=== PATIENT | male | born 1955 | race Caucasian/White ===

== ENCOUNTER → 2017-11-18 | Outpatient (CLI) | payer OTHER ==
[~2017-11-18] MED LIST: ASPIR 8181 MG PO; FISH OIL 1,001000 M2 PO; HYDROCHLOROTHIA25 M2 PO; MONOPRIL20 MG PO; NORVASC 5 MG TAB5 MG; NORVASC5 MG PO; PERCOCET 5-3251 EACH PO; TOPROL XL100 MG PO; XARELTO10 MG PO
[2017-11-18 11:50] LABS: HEMATOCRIT 58.9 % (42.0-52.0); HEMOGLOBIN 18.8 gm/dL (14.0-18.0); MCH 24.7 pg (26.0-34.0); MCHC 31.9 g/dL (28.0-37.0); MCV 77.5 fL (80.0-100.0); MPV 8.3 fl. (7.2-11.1); NUCLEATED RBCS 0 /100WBC; PLATELET COUNT* 405 thou/uL (150-400); RBC 7.61 mil/uL (4.50-6.00); WBC 19.5 thou/uL (4.0-11.0)
[2017-11-18 12:02] LABS: ALBUMIN 3.9 g/dL (3.4-5.0); ALKALINE PHOSPHATASE 101 U/L (46-116); ANION GAP 4 mmol/L (7-16); BUN 24 mg/dL (7-18); CALCIUM 9.2 mg/dL (8.5-10.1); CHLORIDE 101 mmol/L (98-107); CHOLESTEROL 148 mg/dL (<200); CO2 32 mmol/L (21-32); CREATININE 1.3 mg/dL (0.6-1.3); GLUCOSE 109 mg/dL (70-99); HDL CHOLESTEROL 33 mg/dL (>40); LDL CHOLESTEROL 92 mg/dL (<100); POTASSIUM 4.5 mmol/L (3.5-5.1); SERUM ASSESSMENT Clear; SGOT 36 U/L (15-37); SGPT 57 U/L (30-65); SODIUM 137 mmol/L (136-145); TC:HDL 4.5 Ratio (Not establshd); TOTAL BILIRUBIN 1.1 mg/dL (<0.1-1.0); TOTAL PROTEIN 8.6 g/dL (6.4-8.2); TRIGLYCERIDE 115 mg/dL (<150); VLDL 23 mg/dL (<40)
[2017-11-18 12:49] LABS: ABSOLUTE BASOPHILS 0.2 thou/uL (0.0-0.2); ABSOLUTE EOSINOPHILS 0.2 thou/uL (0.0-0.7); ABSOLUTE MONOCYTES 1.4 thou/uL (0.0-1.2); ABSOLUTE NEUTROPHILS 15.8 thou/uL (1.6-8.1); ANISOCYTOSIS 1+; HYPOCHROMASIA 1+; PLATELET ESTIMATE ADEQUATE
== END ==
LOC: M.LAB 11:36
PROVIDERS: Internal Medicine
DX: I10 Essential (primary) hypertension (principal); D45 Polycythemia vera

== ENCOUNTER 2018-06-19 17:55 | Inpatient (IN) | payer OTHER ==
[~2018-06-19] VITALS: Ht 180.3 cm; Wt 123.8 kg
[~2018-06-19 17:55] MED LIST changes: -ASPIR 8181 MG PO; -FISH OIL 1,001000 M2 PO; -NORVASC5 MG PO; -XARELTO10 MG PO
[2018-06-19] MEDS ORDERED: XARELTO10 MG PO (18:08)
[2018-06-19 18:33] LABS: HEMOGLOBIN 19.9 gm/dL (14.0-18.0); MCH 25.6 pg (26.0-34.0); MCHC 32.8 g/dL (28.0-37.0); MPV 8.7 fl. (7.2-11.1); NUCLEATED RBCS 0 /100WBC; PLATELET COUNT* 383 thou/uL (150-400); RBC 7.79 mil/uL (4.50-6.00); RDW-CV 18.8 % (10.5-14.5); WBC 17.2 thou/uL (4.0-11.0)
[2018-06-19 18:36] LABS: HEMATOCRIT 60.8 % (42.0-52.0)
[2018-06-19 18:56] LABS: ANION GAP 9 mmol/L (7-16); BUN 24 mg/dL (7-18); CALCIUM 9.4 mg/dL (8.5-10.1); CHLORIDE 99 mmol/L (98-107); CO2 26 mmol/L (21-32); CREATININE 1.2 mg/dL (0.6-1.3); GLUCOSE 125 mg/dL (70-99); POTASSIUM 3.8 mmol/L (3.5-5.1); SODIUM 134 mmol/L (136-145)
[2018-06-19 18:58] LABS: ABSOLUTE EOSINOPHILS 0.2 thou/uL (0.0-0.7); ABSOLUTE LYMPHOCYTES 1.5 thou/uL (0.8-5.3); ABSOLUTE MONOCYTES 0.7 thou/uL (0.0-1.2); ABSOLUTE NEUTROPHILS 14.8 thou/uL (1.6-8.1); ANISOCYTOSIS 1+; INR 1.7; MACROCYTES 1+; PLATELET ESTIMATE ADEQUATE
[2018-06-19 19:07] LABS: ALBUMIN 3.6 g/dL (3.4-5.0); ALKALINE PHOSPHATASE 105 U/L (46-116); LIPASE 154 U/L (73-393); NT-PRO BRAIN NAT PEPTIDE 1351 pg/mL (<300); SGOT 36 U/L (15-37); SGPT 55 U/L (30-65); TOTAL BILIRUBIN 0.9 mg/dL (<0.1-1.0); TOTAL PROTEIN 8.8 g/dL (6.4-8.2); TROPONIN-I LEVEL <0.06 ng/mL (<0.06)
[2018-06-19 21:54] VITALS: BP 144/90
[2018-06-19 22:29] VITALS: BP 137/84
[2018-06-19] MEDS ORDERED: NORVASC5 MG PO (22:57)
[2018-06-19] MEDS ORDERED: FISH OIL 1,001000 M2 PO (22:58)
[2018-06-20] VITALS: BP 123/61
[2018-06-20 02:41] LABS: HEMATOCRIT 59.3 % (42.0-52.0); HEMOGLOBIN 18.9 gm/dL (14.0-18.0); MCH 25.1 pg (26.0-34.0); MCHC 31.9 g/dL (28.0-37.0); MCV 78.5 fL (80.0-100.0); MPV 8.8 fl. (7.2-11.1); RBC 7.55 mil/uL (4.50-6.00); RDW-CV 18.9 % (10.5-14.5); WBC 17.4 thou/uL (4.0-11.0)
[2018-06-20 03:48] VITALS: BP 125/72
--- NOTE | 2018-06-20 07:52 | NUR ---
PT ADMITTED TO ROOM 203 DURING THIS SHIFT; VSS, A+OX4, 2L O2, UP AD ARSLAN. HE IS ABLE TO COMMUNICATE HIS NEEDS TO STAFF EFFECTIVELY. HE HAS DENIED THE NEED FOR PAIN MEDICATION UP TO THIS TIME. HE HAS BEEN NPO, EXCEPT FOR SIPS WITH MEDS, FOR A CARDIOLOGY CONSULT TODAY. PT DENIES ANY RECURRENT CHEST PAIN SINCE BEING ADMITTED TO THE FLOOR.
[2018-06-20 08:15] VITALS: BP 128/75
[2018-06-20] MEDS ORDERED: ASPIR 8181 MG PO (08:18)
[2018-06-20 08:42] LABS: CHOLESTEROL 154 mg/dL (<200); HDL CHOLESTEROL 28 mg/dL (>40); LDL CHOLESTEROL 104 mg/dL (<100); TC:HDL 5.5 Ratio (Not establshd); TRIGLYCERIDE 110 mg/dL (<150); VLDL 22 mg/dL (<40)
[2018-06-20 08:44] LABS: SERUM ASSESSMENT Clear
[2018-06-20 11:07] VITALS: BP 139/90
[2018-06-20 15:40] VITALS: BP 145/80
--- NOTE | 2018-06-20 18:43 | NUR ---
PT ASSESSMENT CHARTED. VSS AT THIS TIME. NPO AT MIDNIGHT FOR A CARDIAC STRESS TEST IN THE MORNING. NO OTHER COMPLAINTS DURING THE DAY. 1 UNIT OF BLOOD REMOVED AT THE BEDSIDE WITHOUT DIFFICULTY. NO OTHER COMPLAINTS AT THIS TIME. WILL CONTINUE TO MONITOR.
[2018-06-20 20:55] VITALS: BP 119/69
[2018-06-21 00:08] VITALS: BP 123/70
[2018-06-21 04:00] VITALS: BP 112/58
[2018-06-21 04:44] LABS: CHOLESTEROL 140 mg/dL (<200); HDL CHOLESTEROL 26 mg/dL (>40); LDL CHOLESTEROL 91 mg/dL (<100); TC:HDL 5.4 Ratio (Not establshd); TRIGLYCERIDE 116 mg/dL (<150); VLDL 23 mg/dL (<40)
[2018-06-21 04:53] LABS: SERUM ASSESSMENT CLEAR
[2018-06-21 08:00] VITALS: BP 137/85
--- NOTE | 2018-06-21 08:53 | NUR ---
PT IS ABLE TO COMMUNICATE HIS NEEDS TO STAFF EFFECTIVELY. HE HAS DENIED THE NEED FOR PAIN MEDICATION UP TO THIS TIME. HE HAS BEEN NPO FOR CARDIOLOGY STRESS TEST LATER TODAY. POSSIBLE DISCHARGE LATER TODAY.
[2018-06-21 08:58] LABS: ABSOLUTE BASOPHILS 0.3 thou/uL (0.0-0.2); ABSOLUTE EOSINOPHILS 0.9 thou/uL (0.0-0.7); ABSOLUTE LYMPHOCYTES 2.3 thou/uL (0.8-5.3); ABSOLUTE MONOCYTES 0.9 thou/uL (0.0-1.2); ABSOLUTE NEUTROPHILS 14.5 thou/uL (1.6-8.1); BASOPHILS 1.4 %; EOSINOPHILS 4.6 %; HEMATOCRIT 58.5 % (42.0-52.0); HEMOGLOBIN 18.5 gm/dL (14.0-18.0); LYMPHOCYTES 12.3 %; MCH 25.4 pg (26.0-34.0); MCHC 31.7 g/dL (28.0-37.0); MCV 80.1 fL (80.0-100.0); MONOCYTES 4.6 %; MPV 8.9 fl. (7.2-11.1); NUCLEATED RBCS 0 /100WBC; PLATELET COUNT* 369 thou/uL (150-400); POLYS 77.1 %; RBC 7.31 mil/uL (4.50-6.00); RDW-CV 19.4 % (10.5-14.5); WBC 18.7 thou/uL (4.0-11.0)
--- NOTE | 2018-06-21 11:30 | EKG ---
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 06/21/18 1130 1759 1759 Zaid Del Cid MD, FACC /EPI
[2018-06-21 11:47] VITALS: BP 121/75
--- NOTE | 2018-06-21 15:26 | NUR ---
Pt is A&O. Resides at home with . Independent and works. Consult received regarding need for outpt Hematology at ri, CM provided Pt with list and informed that he will need to contact his PCP for a referral. CM also encouraged Pt to contact HR with any questions. Plan ri this evening, post stress test.
--- NOTE | 2018-06-21 16:36 | NUR ---
THERAPEUTIC PHLEBOTOMY STARTED. PT TOLERATING WELL. DRINKING WELL. AT BS
--- NOTE | 2018-06-21 17:09 | NUR ---
STRESS TEST NEGATIVE PER DR COLMENARES. DR ARMANDO NOTIFIED
--- NOTE | 2018-06-21 17:44 | CARDNUC ---
[place] [address] CARDIAC NUCLEAR IMAGING REPORT Name: ALLEN MATHEW Room: [address] IN [facility]#: [id number] Admission: 06/21/18 Attend Phys: Nato Castorena, Discharge: Date of : 53 Date of Service: 06/21/18 1744 Report #: [id number] THIS REPORT FOR: //name// APPROVED REPORT Study performed: 06/20/2018 11:21:00 Indication: Chest pain Patient Location: In-Patient Room #: [facility] Stress Tech: Katarzyna Kan Stress Nurse: Calista Suarez RN Ht: 5 ft 10 in Wt: 273 lbs BSA: 2.38 m2 BMI: 39.16 Medical History Medical History: Angina, HTN, Afib Medications: Amlodipine, Hydrochlorothiazide, Lisinopril, Metoprolol, NTG, Xarelto, ASA 81 MG Allergies: No known drug allergies Cardiac Risk Factors: Age, HTN Previous Cardiac Procedures: None Pretest Chest Pain Characteristics: No chest pain Exercise History: Indeterminate Physical Disabilities: Legs, generalized weakness Pharmacologic Stress Pharmacologic stress test was performed by injecting Regadenoson 0.4 mg IV push over 10-15 seconds immediately followed by the intravenous injection of 34.3 mCi of Tc-99m Sestamibi. Time of stress injection: 14:50 Date: 06/21/2018 Administration Route: IV Administration Site: 1420 Heart Rate at time of stress injection: 122 bpm. Gated Stress SPECT was performed 40 minutes after stress injection. The images were gated to evaluate regional wall motion and calculate left ventricular ejection fraction. Prone imaging was performed. Stress Test Details Stress Test: Pharmacologic stress testing performed using 0.4 mg of regadenoson per 5 mL given IV over 10 seconds. Reason for pharmacologic stress test: physical limitation, [place] [address] CARDIAC NUCLEAR IMAGING REPORT Name: ALLEN MATHEW Room: [address] IN ..#: [id number] Admission: 06/21/18 Attend Phys: Nato Castorena, Discharge: Date of : 53 Date of Service: 06/21/18 1744 Report #: [id number] generalized weakness. HR Max Heart Rate (APMHR): 157 bpm Resting HR: 90 bpm Target HR (85% APMHR): 133 bpm Max HR Achieved: 122 bpm % of APMHR: 77 Recovery HR: 104 bpm BP Resting BP: 142/83 mmHg Recovery BP: 159/76 mmHg ECG Resting ECG: Atrial Fibrillation Stress ECG: Atrial Fibrillation ST Change: None Arrhythmia: None Recovery ECG: Atrial Fibrillation Recovery ST Change: None Recovery Arrhythmia: None Clinical Reason for Termination: Completed protocol Stress Symptoms: Head pressure Exercise duration: 0 min 0 sec Exercise capacity: 1.00 METs The patient tolerated Lexiscan infusion without significant symptoms. Nurse Comments 62 year old male presented for stress test with active Afib, unable to walk on treadmill. Patient tolerated sitting lexiscan well with only head pressure reported which resolved with caffeine. Recovery unremarkable. Patient was escorted with staff via wheelchair to nuclear medicine for images. Patient was stable with no complaints at that time. Stress ECG Conclusion The baseline 12-lead EKG shows atrial fibrillation with a controlled ventricular response. There were no significant ST or T-wave abnormalities. EKGs obtained during and post Lexiscan infusion show atrial for ablation with no significant ST or T wave changes when baseline. Study Quality Study: [place] [address] CARDIAC NUCLEAR IMAGING REPORT Name: ALLEN MATHEW Room: [address]#: [id number] Admission: 06/21/18 Attend Phys: Nato Castorena, Discharge: Date of : 53 Date of Service: 06/21/18 1744 Report #: [id number] Artifact: No artifact Study Data Post stress, the left ventricular ejection was 82%.. Perfusion Post Lexiscan stress images show uniform uptake of the radioisotope throughout the myocardium without defect. Wall Motion Normal left ventricular wall motion. Nuclear Conclusion ECG Findings: negative for ischemia Clinical Findings: negative for ischemia Nuclear Findings: negative for ischemia Exercise Capacity: not assessed Left Ventricular Function: normal Risk Study: low Myocardial perfusion images show no defect to suggest infarct or ischemia. Left ventricular systolic function is normal on gated studies. This is a low risk study. <Conclusion> The baseline 12-lead EKG shows atrial fibrillation with a controlled ventricular response. There were no significant ST or T-wave abnormalities. EKGs obtained during and post Lexiscan infusion show atrial for ablation with no significant ST or T wave changes when baseline. <ELECTRONICALLY SIGNED> By: Derick Herrera MD, FACC 06/21/18 1744 43 43 Derick Herrera MD, FACC /INF
[2018-06-21 17:45] VITALS: BP 121/75
--- NOTE | 2018-06-22 15:03 | CON ---
[address] [address] CONSULTATION Name: ALLEN MATHEW Room: [address] IN M.R.#: [id number] Admission: 06/21/18 Attend Phys: Nato Castorena MD Discharge: 06/21/18 Date of : 53 Report #: [id number] THIS REPORT FOR: //name// CC: Ace Castorena HISTORY OF PRESENT ILLNESS: I was asked by Dr. Castorena to see this 62-year-old white male in Cardiology consultation for evaluation and treatment of chest pain. This man does have a history of permanent atrial fibrillation in the past. He also has polycythemia vera and when he came to the ER yesterday, his hemoglobin was 19.9. He was at a grandson's football game yesterday and developed chest discomfort over his entire anterior chest. This occurred at rest. He was sitting in the stance. He described the pain as a dull pressure. It was a 5-6 on a scale of 10. There were no associated symptoms. There was no radiation of the discomfort. The pain lasted about 2 hours and finally began to go away after he got nitroglycerin and aspirin in the Emergency Room. He got 1 nitroglycerin. The discomfort was gone in 20 minutes. He has not had any further discomfort. LABORATORY DATA: His EKG shows atrial fibrillation with a controlled ventricular response with the heart rate was 89. There is late transition in the precordial R-wave. Otherwise, it is a fairly unremarkable EKG. He has negative troponins x 4. His NT-proBNP was 1351. His chest x-ray showed mild cardiomegaly, slight vascular prominence without focal consolidation or effusion. PAST MEDICAL HISTORY: Also remarkable for essential hypertension. He has mild carotid stenosis as well as the polycythemia rubra vera. He does have mixed hyperlipidemia. HOME MEDICATIONS: Include amlodipine 5 mg daily, fish oil 1400 mg daily as apparently a concentrated capsule, fosinopril 20 mg daily, hydrochlorothiazide 25 mg daily, metoprolol succinate extended release or Toprol-XL 100 mg daily and Xarelto 10 mg daily. In spite of his creatinine of 1.2 with an estimated GFR of 61, there seems to be some discrepancies in our office notes. He is supposed to be taking Xarelto 20 mg daily. ALLERGIES: He has no known allergies. FAMILY HISTORY: Includes hypertension in his mother. Otherwise, no particular family history issues. SOCIAL HISTORY: He never smoked. He has a beer occasionally only on special occasions, does not use illegal drugs. REVIEW OF SYSTEMS: Other than the complaints in the history of present illness are unremarkable. He denies some 45 different complaints in 14 [place] [address] CONSULTATION Name: ALLEN MATHEW Room: [address] [place] M.R.#: [id number] Admission: 06/21/18 Attend Phys: Nato Castorean MD Discharge: 06/21/18 Date of : 53 Report #: [id number]. Please see review of system form for details and negatives in review of systems. PHYSICAL EXAMINATION: GENERAL: He presents as well-developed, well-nourished, white male in no acute distress. VITAL SIGNS: His pulse was 72 and irregular, blood pressure 125/72, respirations 16 and regular, temperature is 98.5. HEENT: His head was atraumatic. Eyes clear. NECK: Supple. There is no jugular venous distention or hepatojugular reflux. Thyroid is not enlarged. There is no adenopathy. SKIN: Warm and dry. Mucous membranes are moist. LUNGS: Clear to auscultation and percussion. HEART: Revealed normal first and second heart sound. There was no S4. There was no S3. There were no murmurs, rubs, thrills, heaves or gallops. The PMI was not displaced. Rhythm was slightly irregular and the rate was approximately 75. ABDOMEN: Soft, flat, nontender, no palpable masses, no organomegaly. EXTREMITIES: Reveal no cyanosis, clubbing or edema. NEUROLOGIC: The patient mentated normally, talked normally, moved all extremities normally. IMPRESSION: 1. Chest pain, which might be ischemic. 2. Permanent atrial fibrillation. 3. Essential hypertension. 4. Mild carotid stenosis. 5. Polycythemia vera. 6. Hyperlipidemia. RECOMMENDATION: He should have a stress test and an echo. He needs a fasting lipid profile. Thank you very much for asking me to see the patient. If there are any questions, please feel free to contact me. <ELECTRONICALLY SIGNED> By: Zaid Del Cid MD, FACC 06/22/18 1503 1102 [id number]. Richmond Mathis MD, FACC /nt
== END 2018-06-21 18:10 | disposition home or self-care (01) | DRG 313 ==
LOC: M.ERS 17:55 → M.TBA-ER 20:57 → M.2W 20:57
PROVIDERS: Emergency Medicine; Family Medicine; Internal Medicine; ADMIT Internal Medicine
DX: R07.89 Other chest pain (principal); I65.29 Occlusion and stenosis of unspecified carotid artery; D45 Polycythemia vera; I10 Essential (primary) hypertension; R79.89 Other specified abnormal findings of blood chemistry; I48.2 Chronic atrial fibrillation; E78.2 Mixed hyperlipidemia; Z82.49 Family history of ischemic heart disease and other diseases of the circulatory system; Z79.899 Other long term (current) drug therapy

== ENCOUNTER → 2018-06-29 | Outpatient (CLI) | payer OTHER ==
[~2018-06-29] MED LIST changes: +ASPIR 8181 MG PO; +FISH OIL 1,001000 M2 PO; +NORVASC5 MG PO; +XARELTO10 MG PO
--- NOTE | 2018-07-01 08:24 | HEMONC ---
[address] [address] HEMATOLOGY ONCOLOGY NOTE Name: ALLEN MATHEW Room: [facility]#: [id number] Admission: 06/29/18 Attend Phys: Ajith Contreras MD Discharge: Date of : 53 Report #: [id number] THIS REPORT FOR: //name// CC: Ace Contreras DATE OF SERVICE: 06/29/2018 DIAGNOSIS: Polycythemia vera. SUBJECTIVE: The patient is a 62-year-old male who has been diagnosed with polycythemia vera followed by Dr. Patel around 4 years ago. He has been on phlebotomy almost every 3-4 months. He continues to be on Xarelto due to atrial fibrillation. The patient denies any previous history of a TIA or VTE. He reports redness of his face and palms. However, he denies lightheadedness, decreased energy or abdominal pain. However, he reported pruritus after a hot bath. REVIEW OF SYSTEMS: All systems were reviewed. It was negative except the above. PAST MEDICAL HISTORY: Hypertension, benign essential polycythemia vera 4 years ago. PAST SURGICAL HISTORY: Fistula repair. MEDICATIONS: Amlodipine 5 mg p.o. daily, fish oil, Monopril 20 mg p.o. daily, hydrochlorothiazide 25 mg p.o. daily, metoprolol XL 100 mg p.o. daily and Xarelto 20 mg p.o. daily. SOCIAL HISTORY: No smoking. He is a social drinker. FAMILY HISTORY: Noncontributory. No family history of malignancy or hematological disorders. ALLERGIES: No known allergies. PHYSICAL EXAMINATION: VITAL SIGNS: Today, temperature is 98.1, pulse is 86, blood pressure is 167/92 and SpO2 was 96% on room air. GENERAL: The patient was lying in bed. He was not in acute distress. LUNGS: Clear to auscultation bilaterally. HEART: Irregular irregularity. S1, S2 within normal limits. ABDOMEN: Soft, nontender and nondistended. Bowel sounds positive. LABORATORY DATA: Labs from his recent visit to the Emergency Room, WBC 8.7, [place] [address] HEMATOLOGY ONCOLOGY NOTE Name: ALLEN MATHEW Room: [facility]#: [id number] Admission: 06/29/18 Attend Phys: Ajith Contreras MD Discharge: Date of : 53 Report #: [id number] hemoglobin 18.5, hematocrit 58.5 and platelets 369. Creatinine is 1.2, glucose is 125 and total protein is 8.8. ASSESSMENT AND PLAN: A 62-year-old male diagnosed with polycythemia vera around 4 years ago. Most recent labs showed that his hematocrit is 58%. RECOMMENDATIONS: 1. Start aspirin 81 mg p.o. daily since he is a high risk for events of VTE and CVA. 2. We will start low-dose Hydrea 500 mg p.o. daily for cytoreductive therapy. 3. We will start weekly phlebotomy to achieve a target of hematocrit below 45%. 4. I discussed with the patient lifestyle modifications including diet, exercise, control his blood pressure to minimize his risk of cardiovascular events. We will follow up in 4 weeks. <ELECTRONICALLY SIGNED> By: Ajith Contreras MD 07/01/18 0824 0944 [id number] Contreras MD /nt
== END ==
LOC: M.RTH 04:14
DX: D45 Polycythemia vera (principal); I10 Essential (primary) hypertension; I48.91 Unspecified atrial fibrillation

== ENCOUNTER → 2018-07-01 | Outpatient (CLI) | payer OTHER ==
[2018-07-01 10:10] VITALS: BP 142/80
[2018-07-01 12:25] VITALS: BP 148/80
--- NOTE | 2018-07-01 13:57 | NUR ---
ARRIVED AMBULATORY MADE SELF COMFORTABLE. 1 UNIT WHOLE BLOOD REMOVED VIA GRAVITY WITH OUT DIFFICULTY. TOLERATED WELL. DENIES QUESTIONS OR NEEDS AT DISCHARGE.
== END ==
LOC: M.INFUS 06:08
DX: D75.1 Secondary polycythemia (principal)

== ENCOUNTER → 2018-07-07 | Outpatient (CLI) | payer OTHER ==
[2018-07-07 10:10] VITALS: BP 126/72
[2018-07-07 10:15] LABS: HEMATOCRIT 56.1 % (42.0-52.0); HEMOGLOBIN 17.8 gm/dL (14.0-18.0); MCH 24.8 pg (26.0-34.0); MCHC 31.7 g/dL (28.0-37.0); MCV 78.2 fL (80.0-100.0); MPV 8.9 fl. (7.2-11.1); NUCLEATED RBCS 0 /100WBC; PLATELET COUNT* 470 thou/uL (150-400); RBC 7.18 mil/uL (4.50-6.00); RDW-CV 18.4 % (10.5-14.5); WBC 19.3 thou/uL (4.0-11.0)
[2018-07-07 10:45] LABS: ABSOLUTE BASOPHILS 0.6 thou/uL (0.0-0.2); ABSOLUTE EOSINOPHILS 0.8 thou/uL (0.0-0.7); ABSOLUTE LYMPHOCYTES 3.3 thou/uL (0.8-5.3); ABSOLUTE MONOCYTES 0.6 thou/uL (0.0-1.2); ABSOLUTE NEUTROPHILS 14.1 thou/uL (1.6-8.1); ANISOCYTOSIS 1+; ATYPICAL LYMPHS 6 %; PLATELET ESTIMATE ADEQUATE
[2018-07-07 11:41] VITALS: BP 141/74
--- NOTE | 2018-07-07 12:34 | NUR ---
ARRIVED AMBULATORY. MADE SELF COMFORTABLE IN RECLINER. IV STARTED AND LAB DRAWN. LAB RESULTS EVALUATED AND PER STANDING ORDER OK TO PROCEDE WITH THERAPUTIC PHLEBOTOMY. 1 UNIT WHOLE BLOOD REMOVED VIA GRAVITY. START AT 1020 STOP AT 1135. TOLERAETD WELL. SHAHNAZ QUESTIONS OR NEED AT DISCHARGE.
== END ==
LOC: M.INFUS 04:57
PROVIDERS: Internal Medicine
DX: D75.1 Secondary polycythemia (principal)

== ENCOUNTER → 2018-07-15 | Outpatient (CLI) | payer OTHER ==
[2018-07-15 10:35] LABS: HEMATOCRIT 54.9 % (42.0-52.0); HEMOGLOBIN 17.4 gm/dL (14.0-18.0); MCH 24.6 pg (26.0-34.0); MCHC 31.7 g/dL (28.0-37.0); MCV 77.4 fL (80.0-100.0); MPV 8.8 fl. (7.2-11.1); NUCLEATED RBCS 0 /100WBC; PLATELET COUNT* 426 thou/uL (150-400); RBC 7.09 mil/uL (4.50-6.00); RDW-CV 18.3 % (10.5-14.5)
[2018-07-15 10:40] VITALS: BP 148/78
[2018-07-15 11:30] VITALS: BP 142/75
[2018-07-15 11:42] LABS: ABSOLUTE BASOPHILS 0.2 thou/uL (0.0-0.2); ABSOLUTE EOSINOPHILS 0.8 thou/uL (0.0-0.7); ABSOLUTE LYMPHOCYTES 2.5 thou/uL (0.8-5.3); ABSOLUTE MONOCYTES 0.6 thou/uL (0.0-1.2); ABSOLUTE NEUTROPHILS 16.8 thou/uL (1.6-8.1); LARGE PLATELETS FEW; PLATELET ESTIMATE INCREASED
[2018-07-15 11:45] LABS: TARGET CELLS 1+
[2018-07-15 11:46] LABS: ANISOCYTOSIS Occasional
== END ==
LOC: M.INFUS 03:38
PROVIDERS: Internal Medicine
DX: D75.1 Secondary polycythemia (principal)

== ENCOUNTER → 2018-07-22 | Outpatient (CLI) | payer OTHER ==
[2018-07-22 10:10] VITALS: BP 104/66
[2018-07-22 10:49] LABS: HEMOGLOBIN 16.7 gm/dL (14.0-18.0); MCH 24.3 pg (26.0-34.0); MCHC 31.5 g/dL (28.0-37.0); MCV 77.2 fL (80.0-100.0); NUCLEATED RBCS 0 /100WBC; PLATELET COUNT* 495 thou/uL (150-400); RBC 6.87 mil/uL (4.50-6.00); RDW-CV 17.5 % (10.5-14.5); WBC 19.6 thou/uL (4.0-11.0)
[2018-07-22 11:47] LABS: ABSOLUTE BASOPHILS 0.4 thou/uL (0.0-0.2); ABSOLUTE EOSINOPHILS 1.4 thou/uL (0.0-0.7); ABSOLUTE LYMPHOCYTES 1.8 thou/uL (0.8-5.3); ABSOLUTE NEUTROPHILS 15.1 thou/uL (1.6-8.1)
[2018-07-22 11:49] LABS: GIANT PLATELETS FEW; HYPOCHROMASIA Occasional; LARGE PLATELETS OCCASIONAL; PLATELET ESTIMATE INCREASED; POLYCHROMASIA Occasional
--- NOTE | 2018-07-22 12:52 | NUR ---
PATIENT ADMITTED TO UNIT FOR THERAPEUTIC PHLEBOTOMY A AND O X 3, VSS. RIGHT A/C PERIPHERAL IV 18 [place] STARTED AND LABS DRAWN. HCT = 53, THERAPEUTIC PHLEBOTOMY STARTED. DIFFICULTY OBTAINING THERAPEUTIC PHLEBOTOMY THROUGH CENTESIS KIT TUBING. TUBING CHANGED AND CONNECTED TO NEW BAG. 500MG OBTAINED SUCCESSFULLY, PATIENT OBSERVED FOR ANY UNTOWARD SYMPTOMS. PATIENT REPORTS "I FEEL FINE AND AM READY TO GO." FINAL VITALS OBTAINED: T=97.4, P+76, R=18, B/P=105/65, SPO2=95%. PATIENT DISCHARGED TO HOME AMBULATORY.
== END ==
LOC: M.INFUS 04:37
PROVIDERS: Internal Medicine
DX: D75.1 Secondary polycythemia (principal)

== ENCOUNTER → 2018-07-27 | Outpatient (CLI) | payer OTHER ==
--- NOTE | ~2018-07-27 | HEMONC ---
[address] [address] HEMATOLOGY ONCOLOGY NOTE Name: ALLEN MATHEW Room: [facility]#: [id number] Admission: 07/27/18 Attend Phys: Ajith Contreras MD Discharge: Date of : 53 Report #: [id number] THIS REPORT FOR: //name// CC: Ace Contrersa DATE OF SERVICE: 07/27/2018 DIAGNOSIS: Polycythemia vera. SUBJECTIVE: The patient presented today as 4 weeks follow up after he did 4 phlebotomies on a weekly basis. The patient stated that he did not take his Hydrea. He was concerned about all side effects including and not limited to hair loss and he heard that it can cause some type of cancer. He was concerned about all these side effects. However, he had 4 phlebotomies and his most recent hematocrit was 53%. He started lifestyle modifications. He lost 4 pounds and he is walking on a daily basis. REVIEW OF SYSTEMS: All systems reviewed. It was negative except the above. PAST MEDICAL, SOCIAL, FAMILY HISTORY: Unchanged from previous visit. MEDICATIONS: Reviewed. PHYSICAL EXAMINATION: VITAL SIGNS: Blood pressure is 154/77, pulse is 80, respirations 20, sat is 98% on room air saturations 96% on room air. GENERAL: The patient was sitting in chair, was not in acute distress. LUNGS: Clear to auscultations bilaterally. HEART: Regular rate and rhythm. S1, S2 within normal limits. ABDOMEN: Soft, nontender, nondistended. Bowel sounds positive. EXTREMITIES: No edema, no cyanosis, no clubbing. LABORATORY DATA: Most recent labs on 07/22/2018 showed WBC 19.6, hemoglobin 16.7, hematocrit 53.0%, MCV 77, platelet count 495. ASSESSMENT AND PLAN: A 62-year-old male who was diagnosed with Polycythemia vera. At this point, we will continue weekly phlebotomy to achieve his target, which is below 45. I discussed with the patient to continue antiplatelet therapy. In addition to that, I had a lengthy discussion with the patient about cytoreductive therapy. 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 [address] HEMATOLOGY ONCOLOGY NOTE Name: PRIYANKAALLEN [id number] Admission: 07/27/18 Attend Phys: Ajith Contreras MD Discharge: Date of : 53 Report #: [id number] will be busulfan or interferon. We will follow up in 6 weeks. We will obtain CBC with a weekly phlebotomy. By: 0929 1021Mochasity Contreras MD /nt
== END ==
LOC: M.RTH 04:32
DX: D45 Polycythemia vera (principal)

== ENCOUNTER → 2018-08-05 | Outpatient (CLI) | payer OTHER ==
[2018-08-05 09:55] LABS: HEMATOCRIT 49.8 % (42.0-52.0); HEMOGLOBIN 15.8 gm/dL (14.0-18.0); MCH 24.2 pg (26.0-34.0); MCHC 31.7 g/dL (28.0-37.0); MCV 76.2 fL (80.0-100.0); MPV 8.7 fl. (7.2-11.1); NUCLEATED RBCS 0 /100WBC; PLATELET COUNT* 524 thou/uL (150-400); RBC 6.54 mil/uL (4.50-6.00); RDW-CV 17.6 % (10.5-14.5); WBC 20.3 thou/uL (4.0-11.0)
[2018-08-05 10:00] VITALS: BP 134/82
[2018-08-05 10:45] LABS: ABSOLUTE BASOPHILS 0.6 thou/uL (0.0-0.2); ABSOLUTE LYMPHOCYTES 2.6 thou/uL (0.8-5.3); ABSOLUTE MONOCYTES 0.6 thou/uL (0.0-1.2); ABSOLUTE NEUTROPHILS 15.4 thou/uL (1.6-8.1); PLATELET ESTIMATE ADEQUATE
[2018-08-05 10:48] VITALS: BP 142/74
--- NOTE | 2018-08-05 10:54 | NUR ---
ARRIVED AMBULATORY FOR THERAPUTIC PHLEBOTOMY. PRE PROCEDURE LABS DRAWN AND EVALUATED. 1 UNIT WHOLE BLOOD REMOVED VIA GRAVITY. TOLERATED WELL. DENIES QUESTIONS OR NEEDS AT DISCHARGE.
== END ==
LOC: M.INFUS 01:35
PROVIDERS: Internal Medicine
DX: D75.1 Secondary polycythemia (principal)

== ENCOUNTER → 2018-08-12 | Outpatient (CLI) | payer OTHER ==
[2018-08-12 09:35] VITALS: BP 113/66
[2018-08-12 10:23] LABS: HEMATOCRIT 47.3 % (42.0-52.0); HEMOGLOBIN 15.2 gm/dL (14.0-18.0); MCV 74.9 fL (80.0-100.0); MPV 9.3 fl. (7.2-11.1); NUCLEATED RBCS 0 /100WBC; PLATELET COUNT* 516 thou/uL (150-400); RBC 6.32 mil/uL (4.50-6.00); RDW-CV 17.4 % (10.5-14.5); WBC 23.6 thou/uL (4.0-11.0)
[2018-08-12 11:11] LABS: ABSOLUTE BASOPHILS 0.5 thou/uL (0.0-0.2); ABSOLUTE LYMPHOCYTES 1.7 thou/uL (0.8-5.3); ABSOLUTE MONOCYTES 0.2 thou/uL (0.0-1.2); ABSOLUTE NEUTROPHILS 21.2 thou/uL (1.6-8.1)
[2018-08-12 11:12] LABS: HYPOCHROMASIA 2+; PLATELET ESTIMATE INCREASED; POLYCHROMASIA 1+
[2018-08-12 11:13] LABS: CLUMPED PLTS RARE
[2018-08-12 11:14] LABS: GIANT PLATELETS RARE
[2018-08-12 11:30] VITALS: BP 107/61
== END ==
LOC: M.INFUS 04:30
PROVIDERS: Internal Medicine
DX: D75.1 Secondary polycythemia (principal)

== ENCOUNTER → 2018-08-19 | Outpatient (CLI) | payer OTHER ==
[2018-08-19 10:48] LABS: ABSOLUTE BASOPHILS 0.2 thou/uL (0.0-0.2); ABSOLUTE EOSINOPHILS 1.1 thou/uL (0.0-0.7); ABSOLUTE LYMPHOCYTES 1.8 thou/uL (0.8-5.3); ABSOLUTE NEUTROPHILS 13.4 thou/uL (1.6-8.1); BASOPHILS 1.2 %; HEMATOCRIT 44.4 % (42.0-52.0); HEMOGLOBIN 13.9 gm/dL (14.0-18.0); LYMPHOCYTES 10.4 %; MCH 23.5 pg (26.0-34.0); MCHC 31.4 g/dL (28.0-37.0); MCV 75.1 fL (80.0-100.0); MONOCYTES 5.9 %; MPV 8.7 fl. (7.2-11.1); NUCLEATED RBCS 0 /100WBC; PLATELET COUNT* 478 thou/uL (150-400); POLYS 76.5 %; RBC 5.92 mil/uL (4.50-6.00); RDW-CV 17.1 % (10.5-14.5); WBC 17.5 thou/uL (4.0-11.0)
--- NOTE | 2018-08-19 11:51 | NUR ---
ARRIVED AMBULATORY. MADE SELF COMFORTABLE IN RECLINER. IV STARTED AND LABS DRAWN DURING IV START. HCT BACK AT 44.5 PER STANDING ORDER NO PHLEBOTOMY NEEDED. PT UPDATED. VOICED UNDERSTANDING AND AGREED. CALLED AND SPOKE WITH DR. ALLEN'S NURSE TO REPORT HCT RESULTS. PT DENIES QUESTIONS OR NEEDS AT DISCHARGE.
== END ==
LOC: M.INFUS 10:00
PROVIDERS: Internal Medicine
DX: D75.1 Secondary polycythemia (principal)

== ENCOUNTER → 2018-09-07 | Outpatient (CLI) | payer OTHER ==
[2018-09-07 11:00] LABS: HEMATOCRIT 47.7 % (42.0-52.0); MCH 23.1 pg (26.0-34.0); MCHC 31.4 g/dL (28.0-37.0); MCV 73.6 fL (80.0-100.0); MPV 8.8 fl. (7.2-11.1); NUCLEATED RBCS 0 /100WBC; PLATELET COUNT* 532 thou/uL (150-400); RBC 6.48 mil/uL (4.50-6.00); WBC 21.3 thou/uL (4.0-11.0)
[2018-09-07 11:22] LABS: ABSOLUTE BASOPHILS 0.4 thou/uL (0.0-0.2); ABSOLUTE EOSINOPHILS 0.2 thou/uL (0.0-0.7); ABSOLUTE LYMPHOCYTES 1.9 thou/uL (0.8-5.3); ABSOLUTE NEUTROPHILS 18.7 thou/uL (1.6-8.1); ANISOCYTOSIS 2+; MICROCYTES 1+
[2018-09-07 11:23] LABS: HYPOCHROMASIA 1+; PLATELET ESTIMATE INCREASED
== END ==
LOC: M.LAB 10:46
PROVIDERS: Internal Medicine
DX: D75.1 Secondary polycythemia (principal)

== ENCOUNTER → 2018-09-07 | Outpatient (CLI) | payer OTHER ==
--- NOTE | ~2018-09-07 | HEMONC ---
[address] [address] HEMATOLOGY ONCOLOGY NOTE Name: PRIYANKAALLEN LINDSAY Room: [facility].#: [id number] Admission: 09/07/18 Attend Phys: Ajith Contreras MD Discharge: Date of : 53 Report #: [id number] THIS REPORT FOR: //name// CC: Ace Contreras DATE OF SERVICE: 09/07/2018 REASON FOR CONSULTATION: Polycythemia vera. SUBJECTIVE: A 62-year-old male who has been previously evaluated because of polycythemia vera. He has been on weekly phlebotomy and his hematocrit has significantly dropped from 60.8 on 06/19/2018, on 08/19/2018 it was 44.4. The patient reported significant improvement of his symptoms, almost 100% in terms of fatigue, lightheadedness, double vision and itching. The patient continues to be on anticoagulation. I explained to the patient that since he is above the age of 60, he needs cytoreductive therapy with Hydrea. REVIEW OF SYSTEMS: All systems were reviewed. It was negative except the above. MEDICATIONS: List has been reviewed. PHYSICAL EXAMINATION: VITAL SIGNS: Today, blood pressure is 154/77, pulse 80, respirations 20, temperature is 98.0, pulse is 96% on room air. GENERAL: The patient was sitting in chair, was not in acute distress. LUNGS: Clear to auscultations bilaterally. HEART: Regular rate and rhythm. S1, S2 within normal limits. ABDOMEN: Soft, nontender, nondistended. Bowel sounds positive. ASSESSMENT AND PLAN: 1. A 62-year-old male who has been previously diagnosed with polycythemia vera. At this point, the patient achieved hematocrit target below 45%. At this point, I would like to obtain a CBC for monitoring every 2 weeks to evaluate his phlebotomy needs. 2. I still would like to discuss with Dr. Patel, initial predatory hunter, if there is any contraindication to initiate Hydrea. Continue his current medications. By: 1037 1214Ajith Contreras MD /nt
== END ==
LOC: M.RTH 04:13
DX: D45 Polycythemia vera (principal); Z79.899 Other long term (current) drug therapy

== ENCOUNTER → 2018-09-16 | Outpatient (CLI) | payer OTHER ==
[2018-09-16 10:05] VITALS: BP 112/74
[2018-09-16 10:12] LABS: HEMATOCRIT 46.5 % (42.0-52.0); HEMOGLOBIN 14.5 gm/dL (14.0-18.0); MCH 22.9 pg (26.0-34.0); MCHC 31.3 g/dL (28.0-37.0); MCV 73.2 fL (80.0-100.0); NUCLEATED RBCS 0 /100WBC; PLATELET COUNT* 528 thou/uL (150-400); RBC 6.34 mil/uL (4.50-6.00); RDW-CV 18.3 % (10.5-14.5); WBC 21.1 thou/uL (4.0-11.0)
[2018-09-16 11:11] LABS: ABSOLUTE BASOPHILS 0.2 thou/uL (0.0-0.2); ABSOLUTE EOSINOPHILS 0.8 thou/uL (0.0-0.7); ABSOLUTE LYMPHOCYTES 2.3 thou/uL (0.8-5.3); ABSOLUTE MONOCYTES 0.8 thou/uL (0.0-1.2); ABSOLUTE NEUTROPHILS 16.9 thou/uL (1.6-8.1); ANISOCYTOSIS 2+; HYPOCHROMASIA 1+; METAMYELOCYTES 1 %; MICROCYTES 1+; PLATELET ESTIMATE ADEQUATE
[2018-09-16 11:45] VITALS: BP 109/69
--- NOTE | 2018-09-16 13:38 | NUR ---
ARRIVED AMBULATORY. MADE SELF COMFORTABLE IN RELCINER. RIGHT AC IV STARTED ADN ORDERED LAB DRAWN. LAB RESULTS EVALUATED AND HCT N0TED TO BE 46.5. PT REQUEST DR. GARCIA BE CALLED TO SEE IF PHLEBOTOMY WAS NEEDED. PER DR GARCIA GO AHEAD WITH PHLEBOTOMY ORDERED. ONE UNIT OF WHOLE BLOOD REMOVEDVIA GRAVITY START TIME 1035 STOP 1140. TOLERATED WELL. DENIES NEEDS AT DISCHARGE.
== END ==
LOC: M.INFUS 09-02 10:00
PROVIDERS: Internal Medicine
DX: D75.1 Secondary polycythemia (principal)

== ENCOUNTER → 2018-10-21 | Outpatient (CLI) | payer OTHER ==
--- NOTE | 2018-10-21 12:27 | NUR ---
ARRIVED AMBULATORY. MADE SELF COMFORTABLE IN RECLINER. PHONE CALL PLACED TO DR. GARCIA. AND ORDER RECIEVED FOR HH AND THERAPUTIC PHLEBOTOMY PER STANDING ORDER. LABS OBTAINED AND RESULTS EVALUATED. PER STANDING ORDER NO PHLEBOTOMY NEEDED. PT UPDATED. VOICED UNDERSTANDING AND AGREED. DENEIS NEEDS AT DISCHARGE.
== END ==
LOC: M.INFUS 10:56
DX: D75.1 Secondary polycythemia (principal); I10 Essential (primary) hypertension; I48.2 Chronic atrial fibrillation

== ENCOUNTER → 2018-11-12 | Outpatient (CLI) | payer OTHER ==
[2018-11-12 11:53] LABS: ABSOLUTE BASOPHILS 0.3 thou/uL (0.0-0.2); ABSOLUTE MONOCYTES 0.8 thou/uL (0.0-1.2); ABSOLUTE NEUTROPHILS 14.2 thou/uL (1.6-8.1); BASOPHILS 1.5 %; EOSINOPHILS 5.6 %; HEMOGLOBIN 13.7 gm/dL (14.0-18.0); LYMPHOCYTES 10.7 %; MCH 21.2 pg (26.0-34.0); MCHC 31.1 g/dL (28.0-37.0); MCV 68.1 fL (80.0-100.0); MONOCYTES 4.5 %; MPV 8.6 fl. (7.2-11.1); NUCLEATED RBCS 0 /100WBC; PLATELET COUNT* 556 thou/uL (150-400); POLYS 77.7 %; RBC 6.47 mil/uL (4.50-6.00); RDW-CV 19.8 % (10.5-14.5); WBC 18.3 thou/uL (4.0-11.0)
[2018-11-12 12:19] LABS: HYPOCHROMASIA 1+; PLATELET ESTIMATE INCREASED; POLYCHROMASIA 1+
[2018-11-12 12:20] LABS: ANISOCYTOSIS 1+; MICROCYTES 1+; POIKILOCYTOSIS 1+
== END ==
LOC: M.LAB 11:22
PROVIDERS: Internal Medicine
DX: D75.1 Secondary polycythemia (principal)

== ENCOUNTER → 2018-12-07 | Outpatient (CLI) | payer OTHER ==
--- NOTE | 2018-12-08 12:53 | HEMONC ---
[address] [address] HEMATOLOGY ONCOLOGY NOTE Name: PRIYANKAALLEN LINDSAY [facility]#: [id number] Admission: 12/07/18 Attend Phys: Ajith Contreras MD Discharge: Date of : 53 Report #: [id number] THIS REPORT FOR: //name// CC: Ajith Culpmez DATE OF SERVICE: 12/07/2018 DIAGNOSIS: Polycythemia vera. INDICATIONS: The patient presented today for a 3-month followup. He has been on frequent phlebotomy. His hematocrit has been declining. Back in June, his hematocrit was 60.8%. Most recently, in October and November, it was 44-45.6 percent. The patient continues to feel very well. I discussed with him the importance of cytoreductive treatment with Hydrea; however, the patient expressed that he is very concerned about all the side effects. I advised the patient to take aspirin b.i.d. to maximize his prevention risk of ischemic events. At the same time, we will continue to monitor his hematocrit every 4 weeks. REVIEW OF SYSTEMS: All systems reviewed. It was negative except the above. PAST MEDICAL, SOCIAL, AND FAMILY HISTORY: Unchanged from previous visit. PHYSICAL EXAMINATION: VITAL SIGNS TODAY: Blood pressure is 133/76, pulse 76, respirations 20, temperature is 97.8, pulse 95% on room air. GENERAL: The patient was sitting in chair, was not in acute distress. LUNGS: Clear to auscultation bilaterally. HEART: Regular rate and rhythm. S1, S2 within normal limits. ABDOMEN: Soft, nontender, nondistended, bowel sounds positive. MEDICATIONS: Currently the patient on Xarelto 20 mg p.o. daily. ASSESSMENT AND PLAN: A 62-year-old male has been diagnosed with polycythemia vera. His hematocrit is around the target, which is 45%. At this point, the patient is adamant not to start Hydrea. We will continue to do frequent phlebotomy. <ELECTRONICALLY SIGNED> By: Ajith Contreras MD 12/08/18 1253 0942 [id number] Contreras MD /nt
== END ==
LOC: M.RTH 04:59
DX: D45 Polycythemia vera (principal); Z79.899 Other long term (current) drug therapy

== ENCOUNTER → 2019-03-08 | Outpatient (CLI) | payer OTHER ==
--- NOTE | ~2019-03-08 | HEMONC ---
[address] [address] HEMATOLOGY ONCOLOGY NOTE Name: ALLEN MATHEW Room: [facility].#: [id number] Admission: 03/08/19 Attend Phys: Ajith Contreras MD Discharge: Date of : 53 Report #: [id number] THIS REPORT FOR: //name// CC: Ajith Culpmez DATE OF SERVICE: 03/08/2019 DIAGNOSIS: Polycythemia vera. SUBJECTIVE: The patient presented today as 3 months followup. He continues to have blood donation every 9 weeks. He denies any nausea, vomiting, or abdominal pain. No weight loss, no change in his appetite, and no lightheadedness. The patient denies any TIA symptoms. His hematocrit has been checked, which came back as 43.6%. REVIEW OF SYSTEMS: All systems were reviewed. It was negative except the above. PAST MEDICAL, SOCIAL, AND FAMILY HISTORY: Unchanged from last visit. MEDICATIONS: List has been reviewed. PHYSICAL EXAMINATION: VITAL SIGNS: Today, blood pressure is 131/78, pulse is 76, respirations 18, temperature is 99.4, and sat is 96% on room air. GENERAL: The patient was sitting in chair, was not in acute distress. LUNGS: Clear to auscultations bilaterally. HEART: Regular rate and rhythm. S1, S2 within normal limits. ABDOMEN: Soft, nontender, nondistended. Bowel sounds positive. LABORATORY DATA: On 03/01/2019; WBC 24.0, hemoglobin 13.4, hematocrit 43.6, and platelets 612. ASSESSMENT AND PLAN: The patient is a 63-year-old male diagnosed with polycythemia vera, JAK2 mutation positive at this point, and hematocrit and hemoglobin under the target. He is doing blood donation. We will check his labs every 6 weeks. Follow up in 3 months. Continue prophylaxis with Xarelto. The patient again stated that he is not comfortable initiating Hydrea. By: [id number] Contreras MD /nt
== END ==
LOC: M.RTH 05:22
DX: D45 Polycythemia vera (principal)

== ENCOUNTER → 2019-09-27 | Outpatient (CLI) | payer OTHER | LOC: M.ULTRA 10:22 | DX: Z03.89 Encounter for observation for other suspected diseases and conditions ruled out (principal) ==

== ENCOUNTER → 2019-10-03 | Outpatient (CLI) | payer OTHER ==
[2019-10-03 15:17] LABS: ALBUMIN 4.1 g/dL (3.4-5.0); CALCIUM 9.2 mg/dL (8.5-10.1); CREATININE 1.4 mg/dL (0.6-1.3); POTASSIUM 4.7 mmol/L (3.5-5.1); TOTAL BILIRUBIN 0.9 mg/dL (<0.1-1.0); TOTAL PROTEIN 8.3 g/dL (6.4-8.2)
[2019-10-03 15:20] LABS: HEMATOCRIT 43.8 % (42.0-52.0); HEMOGLOBIN 13.5 gm/dL (14.0-18.0); MCH 22.3 pg (26.0-34.0); MCHC 30.9 g/dL (28.0-37.0); MPV 8.8 fl. (7.2-11.1); NUCLEATED RBCS 0 /100WBC; PLATELET COUNT* 503 thou/uL (150-400); RBC 6.08 mil/uL (4.50-6.00); RDW-CV 21.7 % (10.5-14.5); WBC 26.7 thou/uL (4.0-11.0)
[2019-10-03 15:44] LABS: ABSOLUTE EOSINOPHILS 0.8 thou/uL (0.0-0.7); ABSOLUTE LYMPHOCYTES 2.1 thou/uL (0.8-5.3); ABSOLUTE MONOCYTES 0.8 thou/uL (0.0-1.2); ATYPICAL LYMPHS 2 %; PLATELET ESTIMATE INCREASED
[2019-10-03 15:45] LABS: ANISOCYTOSIS 1+; LARGE PLATELETS FEW; MICROCYTES 1+
== END ==
LOC: M.LAB 14:31
PROVIDERS: Internal Medicine Hematology & Oncology
DX: D45 Polycythemia vera (principal)

== ENCOUNTER → 2019-12-22 | Outpatient (CLI) | payer OTHER ==
[2019-12-22 12:28] LABS: HEMATOCRIT 43.4 % (42.0-52.0); HEMOGLOBIN 13.4 gm/dL (14.0-18.0); MCH 22.1 pg (26.0-34.0); MCHC 30.9 g/dL (28.0-37.0); MCV 71.7 fL (80.0-100.0); MPV 8.6 fl. (7.2-11.1); NUCLEATED RBCS 0 /100WBC; PLATELET COUNT* 524 thou/uL (150-400); RBC 6.06 mil/uL (4.50-6.00); RDW-CV 19.4 % (10.5-14.5); WBC 25.1 thou/uL (4.0-11.0)
[2019-12-22 12:36] LABS: ALBUMIN 3.6 g/dL (3.4-5.0); CALCIUM 8.7 mg/dL (8.5-10.1); CREATININE 1.6 mg/dL (0.6-1.3); POTASSIUM 3.7 mmol/L (3.5-5.1); TOTAL BILIRUBIN 0.7 mg/dL (<0.1-1.0); TOTAL PROTEIN 8.1 g/dL (6.4-8.2)
[2019-12-22 12:51] LABS: ABSOLUTE BASOPHILS 0.3 thou/uL (0.0-0.2); ABSOLUTE EOSINOPHILS 0.3 thou/uL (0.0-0.7); ABSOLUTE MONOCYTES 1.3 thou/uL (0.0-1.2); ABSOLUTE NEUTROPHILS 20.3 thou/uL (1.6-8.1); ANISOCYTOSIS 1+; HYPOCHROMASIA 1+; MICROCYTES 1+; PLATELET ESTIMATE INCREASED; POIKILOCYTOSIS 1+
== END ==
LOC: M.LAB 12:08
PROVIDERS: Internal Medicine Hematology & Oncology
DX: D45 Polycythemia vera (principal)

== ENCOUNTER → 2020-01-30 | Outpatient (CLI) | payer OTHER ==
[2020-01-30 06:08] LABS: HEMATOCRIT 46.6 % (42.0-52.0); HEMOGLOBIN 14.3 gm/dL (14.0-18.0); MCH 22.9 pg (26.0-34.0); MCHC 30.7 g/dL (28.0-37.0); MCV 74.7 fL (80.0-100.0); MPV 9.3 fl. (7.2-11.1); RBC 6.23 mil/uL (4.50-6.00); RDW-CV 22.6 % (10.5-14.5); WBC 18.2 thou/uL (4.0-11.0)
[2020-01-30 06:32] LABS: ALBUMIN 3.8 g/dL (3.4-5.0); CALCIUM 8.9 mg/dL (8.5-10.1); CREATININE 1.8 mg/dL (0.6-1.3); DIRECT BILIRUBIN 0.1 mg/dL (<0.1-0.3); POTASSIUM 4.1 mmol/L (3.5-5.1); TOTAL BILIRUBIN 0.7 mg/dL (<0.1-1.0); TOTAL PROTEIN 8.6 g/dL (6.4-8.2)
== END ==
LOC: M.LAB 02:09
PROVIDERS: ATTEND Internal Medicine Hematology & Oncology
DX: D45 Polycythemia vera (principal); M10.071 Idiopathic gout, right ankle and foot

== ENCOUNTER → 2020-02-15 | Outpatient (CLI) | payer OTHER ==
[2020-02-15 10:56] LABS: ABSOLUTE BASOPHILS 0.2 thou/uL (0.0-0.2); ABSOLUTE EOSINOPHILS 0.5 thou/uL (0.0-0.7); ABSOLUTE LYMPHOCYTES 1.5 thou/uL (0.8-5.3); ABSOLUTE MONOCYTES 0.8 thou/uL (0.0-1.2); ABSOLUTE NEUTROPHILS 14.8 thou/uL (1.6-8.1); BASOPHILS 1.3 %; EOSINOPHILS 2.9 %; HEMATOCRIT 46.8 % (42.0-52.0); HEMOGLOBIN 14.7 gm/dL (14.0-18.0); LYMPHOCYTES 8.4 %; MCH 23.6 pg (26.0-34.0); MCHC 31.3 g/dL (28.0-37.0); MCV 75.3 fL (80.0-100.0); MONOCYTES 4.4 %; MPV 8.9 fl. (7.2-11.1); NUCLEATED RBCS 0 /100WBC; PLATELET COUNT* 288 thou/uL (150-400); RBC 6.21 mil/uL (4.50-6.00); RDW-CV 23.3 % (10.5-14.5); WBC 17.9 thou/uL (4.0-11.0)
[2020-02-15 11:09] LABS: ALBUMIN 3.7 g/dL (3.4-5.0); CALCIUM 8.4 mg/dL (8.5-10.1); CREATININE 1.9 mg/dL (0.6-1.3); DIRECT BILIRUBIN 0.2 mg/dL (<0.1-0.3); POTASSIUM 3.9 mmol/L (3.5-5.1); TOTAL BILIRUBIN 0.8 mg/dL (<0.1-1.0); TOTAL PROTEIN 8.5 g/dL (6.4-8.2)
[2020-02-15 11:56] LABS: ANISOCYTOSIS 2+; PLATELET ESTIMATE ADEQUATE
[2020-02-16 13:08] LABS: KAPPA FREE LIGHT CHAINS 81.3 mg/L (3.3-19.4); LAMBDA FREE LIGHT CHAINS 32.7 mg/L (5.7-26.3)
[2020-02-20 21:05] LABS: GLOBULIN TOTAL 4.1 g/dL (2.2-3.9); M-SPIKE Not Observed g/dL (Not Observed)
== END ==
LOC: M.LAB 10:13
PROVIDERS: ATTEND Internal Medicine Hematology & Oncology
DX: Z13.9 Encounter for screening, unspecified (principal); I48.0 Paroxysmal atrial fibrillation; D45 Polycythemia vera; Z79.01 Long term (current) use of anticoagulants

== ENCOUNTER → 2020-03-20 | Outpatient (CLI) | payer OTHER ==
[2020-03-20 08:26] LABS: ALBUMIN 3.6 g/dL (3.4-5.0); CALCIUM 9.2 mg/dL (8.5-10.1); CREATININE 1.7 mg/dL (0.6-1.3); DIRECT BILIRUBIN 0.2 mg/dL (<0.1-0.3); POTASSIUM 3.8 mmol/L (3.5-5.1); TOTAL BILIRUBIN 0.7 mg/dL (<0.1-1.0); TOTAL PROTEIN 8.2 g/dL (6.4-8.2)
[2020-03-20 08:37] LABS: HEMATOCRIT 46.9 % (42.0-52.0); HEMOGLOBIN 14.5 gm/dL (14.0-18.0); MCH 24.2 pg (26.0-34.0); MCV 78.2 fL (80.0-100.0); MPV 8.8 fl. (7.2-11.1); NUCLEATED RBCS 0 /100WBC; PLATELET COUNT* 383 thou/uL (150-400); RDW-CV 21.7 % (10.5-14.5); WBC 20.9 thou/uL (4.0-11.0)
[2020-03-20 09:10] LABS: ABSOLUTE BASOPHILS 0.2 thou/uL (0.0-0.2); ABSOLUTE EOSINOPHILS 0.2 thou/uL (0.0-0.7); ABSOLUTE LYMPHOCYTES 2.5 thou/uL (0.8-5.3); ABSOLUTE MONOCYTES 0.4 thou/uL (0.0-1.2); ABSOLUTE NEUTROPHILS 17.6 thou/uL (1.6-8.1); ANISOCYTOSIS 1+; HYPOCHROMASIA 1+; LARGE PLATELETS RARE; PLATELET ESTIMATE ADEQUATE; POLYCHROMASIA 1+
[2020-03-20 09:11] LABS: POIKILOCYTOSIS 1+
[2020-03-20 17:06] LABS: IgA 420 mg/dL (61-437); IgG 1814 mg/dL (603-1613); IgM 208 mg/dL (20-172)
[2020-03-22 07:13] LABS: BETA-2-MICROGLOBULIN 6.2 mg/L (0.6-2.4)
[2020-03-22 16:06] LABS: GLOBULIN TOTAL 3.8 g/dL (2.2-3.9); M-SPIKE Not Observed g/dL (Not Observed)
== END ==
LOC: M.LAB 07:35
DX: I48.0 Paroxysmal atrial fibrillation (principal); Z79.01 Long term (current) use of anticoagulants

== ENCOUNTER → 2020-04-30 | Outpatient (CLI) | payer OTHER ==
[2020-04-30 13:02] LABS: HEMATOCRIT 45.6 % (42.0-52.0); HEMOGLOBIN 14.3 gm/dL (14.0-18.0); MCH 24.9 pg (26.0-34.0); MCHC 31.4 g/dL (28.0-37.0); MCV 79.2 fL (80.0-100.0); MPV 8.3 fl. (7.2-11.1); NUCLEATED RBCS 0 /100WBC; PLATELET COUNT* 308 thou/uL (150-400); RBC 5.76 mil/uL (4.50-6.00); RDW-CV 19.2 % (10.5-14.5); WBC 19.5 thou/uL (4.0-11.0)
[2020-04-30 13:21] LABS: ALBUMIN 3.6 g/dL (3.4-5.0); CALCIUM 8.4 mg/dL (8.5-10.1); CREATININE 1.5 mg/dL (0.6-1.3); TOTAL BILIRUBIN 1.2 mg/dL (<0.1-1.0); TOTAL PROTEIN 7.9 g/dL (6.4-8.2); URIC ACID* 7.1 mg/dL (2.6-7.2)
[2020-04-30 13:26] LABS: ABSOLUTE EOSINOPHILS 0.4 thou/uL (0.0-0.7); ABSOLUTE LYMPHOCYTES 0.8 thou/uL (0.8-5.3); ABSOLUTE NEUTROPHILS 18.3 thou/uL (1.6-8.1)
[2020-04-30 13:27] LABS: PLATELET ESTIMATE ADEQUATE
== END ==
LOC: M.LAB 12:43
PROVIDERS: ATTEND Internal Medicine Hematology & Oncology
DX: Z79.01 Long term (current) use of anticoagulants (principal)

== ENCOUNTER 2020-06-08 02:52 | Emergency (ER) | payer OTHER, MEDICARE ==
[~2020-06-08] VITALS: Ht 182.9 cm; Wt 116.6 kg
[2020-06-08] MEDS ORDERED: NORCO 5-325 TA1 EAC2 PO (03:10)
[2020-06-08] MEDS ORDERED: PREDNISONE 20 M20 M1 PO (03:10)
[2020-06-08 03:29] VITALS: BP 155/70
== END 2020-06-08 03:30 | disposition home or self-care (01) ==
LOC: M.ERS 02:52
DX: M77.8 Other enthesopathies, not elsewhere classified (principal); I10 Essential (primary) hypertension; I48.91 Unspecified atrial fibrillation; Z79.899 Other long term (current) drug therapy

== ENCOUNTER → 2020-06-15 | Outpatient (CLI) | payer OTHER, MEDICARE ==
[~2020-06-15] MED LIST changes: +NORCO 5-325 TA1 EAC2 PO; +PREDNISONE 20 M20 M1 PO
[2020-06-15 07:38] LABS: HEMATOCRIT 48.3 % (42.0-52.0); HEMOGLOBIN 14.9 gm/dL (14.0-18.0); MCHC 30.9 g/dL (28.0-37.0); MPV 8.4 fl. (7.2-11.1); NUCLEATED RBCS 0 /100WBC; PLATELET COUNT* 437 thou/uL (150-400); RBC 5.96 mil/uL (4.50-6.00); RDW-CV 20.1 % (10.5-14.5); WBC 20.3 thou/uL (4.0-11.0)
[2020-06-15 07:52] LABS: ALBUMIN 3.7 g/dL (3.4-5.0); CREATININE 1.7 mg/dL (0.6-1.3); POTASSIUM 3.9 mmol/L (3.5-5.1); TOTAL BILIRUBIN 0.9 mg/dL (<0.1-1.0); TOTAL PROTEIN 8.6 g/dL (6.4-8.2)
[2020-06-15 09:37] LABS: ABSOLUTE LYMPHOCYTES 5.5 thou/uL (0.8-5.3); ABSOLUTE MONOCYTES 0.8 thou/uL (0.0-1.2); METAMYELOCYTES 1 %; PLATELET ESTIMATE ADEQUATE
== END ==
LOC: M.LAB 06:46
PROVIDERS: ATTEND Internal Medicine Hematology & Oncology
DX: D45 Polycythemia vera (principal)

== ENCOUNTER → 2020-07-31 | Outpatient (CLI) | payer OTHER, MEDICARE ==
[2020-07-31 14:16] LABS: HEMATOCRIT 50.3 % (42.0-52.0); HEMOGLOBIN 16.1 gm/dL (14.0-18.0); MCH 26.2 pg (26.0-34.0); MCHC 31.9 g/dL (28.0-37.0); MCV 82.2 fL (80.0-100.0); MPV 8.3 fl. (7.2-11.1); NUCLEATED RBCS 0 /100WBC; PLATELET COUNT* 295 thou/uL (150-400); RBC 6.12 mil/uL (4.50-6.00); RDW-CV 18.4 % (10.5-14.5); WBC 18.6 thou/uL (4.0-11.0)
[2020-07-31 14:29] LABS: ALBUMIN 3.5 g/dL (3.4-5.0); CALCIUM 8.8 mg/dL (8.5-10.1); CREATININE 1.4 mg/dL (0.6-1.3); POTASSIUM 3.9 mmol/L (3.5-5.1); TOTAL PROTEIN 8.4 g/dL (6.4-8.2); URIC ACID* 8.7 mg/dL (2.6-7.2)
[2020-07-31 14:31] LABS: ABSOLUTE EOSINOPHILS 0.4 thou/uL (0.0-0.7); ABSOLUTE LYMPHOCYTES 1.5 thou/uL (0.8-5.3); ABSOLUTE MONOCYTES 1.3 thou/uL (0.0-1.2); ABSOLUTE NEUTROPHILS 15.4 thou/uL (1.6-8.1); PLATELET ESTIMATE ADEQUATE
== END ==
LOC: M.LAB 13:59
PROVIDERS: ATTEND Internal Medicine Hematology & Oncology
DX: D45 Polycythemia vera (principal)

== ENCOUNTER 2020-11-02 10:03 | Emergency (ER) | payer OTHER ==
[~2020-11-02] VITALS: Ht 182.9 cm; Wt 120.2 kg
[2020-11-02 10:13] VITALS: BP 111/78
[2020-11-02] MEDS ORDERED: KEFLEX500 M1 PO (10:24)
[2020-11-02] MEDS ORDERED: BACTRIM DS TAB1 EACH PO (10:24)
[2020-11-02] MEDS ORDERED: HYDROCODON-ACE1 EAC7 PO (10:24)
== END 2020-11-02 10:40 | disposition home or self-care (01) ==
LOC: M.ERS 10:03
DX: L03.031 Cellulitis of right toe (principal); I10 Essential (primary) hypertension; I48.91 Unspecified atrial fibrillation; Z79.899 Other long term (current) drug therapy

== ENCOUNTER 2021-05-27 00:18 | Emergency (ER) | payer OTHER ==
[~2021-05-27] VITALS: Ht 182.9 cm; Wt 124.7 kg
[~2021-05-27 00:18] MED LIST changes: +ALLOPURINOL 10100 M3 PO; +ARTHRITIS PAIN650 M2 PO; +BACTRIM DS TAB1 EACH PO; +COLCHICINE0.6 M1 PO; +HYDREA 500 MG500 M1 PO; +HYDROCODON-ACE1 EAC7 PO; +HYDROXYZINE HCL10 M2 PO; +HYDROXYZINE HCL25 M2 PO; +KEFLEX500 M1 PO; +ONE DAILY FOR1 EACH PO; +ULORIC40 MG PO; -XARELTO10 MG PO; +XARELTO20 MG
[2021-05-27] MEDS ORDERED: DOXYCYCLINE 10100 MG PO (01:01)
[2021-05-27] MEDS ORDERED: ENDOCET 7.5-321 EACH PO (01:15)
[2021-05-27 01:21] VITALS: BP 166/79
== END 2021-05-27 01:21 | disposition home or self-care (01) ==
LOC: M.ERS 00:18
DX: L97.329 Non-pressure chronic ulcer of left ankle with unspecified severity (principal); I10 Essential (primary) hypertension; I48.91 Unspecified atrial fibrillation; Z90.89 Acquired absence of other organs; Z79.891 Long term (current) use of opiate analgesic; Z79.1 Long term (current) use of non-steroidal anti-inflammatories (NSAID); Z79.899 Other long term (current) drug therapy

== ENCOUNTER → 2021-06-04 | Outpatient (CLI) | payer OTHER ==
[~2021-06-04] MED LIST changes: +DOXYCYCLINE 10100 MG PO; +ENDOCET 7.5-321 EACH PO
== END ==
LOC: M.WC 08:30
PROVIDERS: ATTEND Emergency Medicine Undersea and Hyperbaric Medicine
DX: L97.212 Non-pressure chronic ulcer of right calf with fat layer exposed (principal); L97.322 Non-pressure chronic ulcer of left ankle with fat layer exposed; D45 Polycythemia vera; E66.9 Obesity, unspecified; I10 Essential (primary) hypertension; I48.91 Unspecified atrial fibrillation; M10.9 Gout, unspecified; M19.90 Unspecified osteoarthritis, unspecified site; Z68.37 Body mass index [BMI] 37.0-37.9, adult

== ENCOUNTER 2021-06-08 01:27 | Emergency (ER) | payer OTHER ==
[~2021-06-08] VITALS: Ht 182.9 cm; Wt 122.5 kg
[2021-06-08 03:44] VITALS: BP 150/64
== END 2021-06-08 03:44 | disposition home or self-care (01) ==
LOC: M.ERS 01:27
DX: K59.00 Constipation, unspecified (principal); I48.91 Unspecified atrial fibrillation; I10 Essential (primary) hypertension; Z90.89 Acquired absence of other organs; Z79.1 Long term (current) use of non-steroidal anti-inflammatories (NSAID); Z79.891 Long term (current) use of opiate analgesic; Z79.899 Other long term (current) drug therapy

== ENCOUNTER → 2021-06-11 | Outpatient (CLI) | payer OTHER | LOC: M.WC 09:19 | PROVIDERS: ATTEND Emergency Medicine Undersea and Hyperbaric Medicine | DX: L97.212 Non-pressure chronic ulcer of right calf with fat layer exposed (principal); L97.322 Non-pressure chronic ulcer of left ankle with fat layer exposed; L97.821 Non-pressure chronic ulcer of other part of left lower leg limited to breakdown of skin; D45 Polycythemia vera; E66.9 Obesity, unspecified; I10 Essential (primary) hypertension; I48.91 Unspecified atrial fibrillation; M10.9 Gout, unspecified; M19.90 Unspecified osteoarthritis, unspecified site; Z68.37 Body mass index [BMI] 37.0-37.9, adult ==

== ENCOUNTER → 2021-06-18 | Outpatient (CLI) | payer OTHER | LOC: M.WC 08:48 | PROVIDERS: ATTEND Emergency Medicine Undersea and Hyperbaric Medicine | DX: L97.212 Non-pressure chronic ulcer of right calf with fat layer exposed (principal); L97.322 Non-pressure chronic ulcer of left ankle with fat layer exposed; L97.821 Non-pressure chronic ulcer of other part of left lower leg limited to breakdown of skin; D45 Polycythemia vera; E66.9 Obesity, unspecified; I10 Essential (primary) hypertension; I48.91 Unspecified atrial fibrillation; M10.9 Gout, unspecified; M19.90 Unspecified osteoarthritis, unspecified site; Z68.37 Body mass index [BMI] 37.0-37.9, adult ==

== ENCOUNTER → 2021-06-21 | Outpatient (CLI) | payer OTHER | LOC: M.WC 12:34 | PROVIDERS: ATTEND Emergency Medicine Undersea and Hyperbaric Medicine | DX: L97.212 Non-pressure chronic ulcer of right calf with fat layer exposed (principal); L97.321 Non-pressure chronic ulcer of left ankle limited to breakdown of skin; L97.811 Non-pressure chronic ulcer of other part of right lower leg limited to breakdown of skin; D45 Polycythemia vera; I10 Essential (primary) hypertension; I48.91 Unspecified atrial fibrillation; M10.9 Gout, unspecified; M19.90 Unspecified osteoarthritis, unspecified site; E66.9 Obesity, unspecified; Z68.37 Body mass index [BMI] 37.0-37.9, adult ==

== ENCOUNTER → 2021-06-25 | Outpatient (CLI) | payer OTHER | LOC: M.WC 09:00 | PROVIDERS: ATTEND Emergency Medicine Undersea and Hyperbaric Medicine | DX: L97.321 Non-pressure chronic ulcer of left ankle limited to breakdown of skin (principal); L97.811 Non-pressure chronic ulcer of other part of right lower leg limited to breakdown of skin; L97.212 Non-pressure chronic ulcer of right calf with fat layer exposed; L97.821 Non-pressure chronic ulcer of other part of left lower leg limited to breakdown of skin; D75.1 Secondary polycythemia; I10 Essential (primary) hypertension; I48.91 Unspecified atrial fibrillation; M10.9 Gout, unspecified; M19.90 Unspecified osteoarthritis, unspecified site; E66.9 Obesity, unspecified; Z68.37 Body mass index [BMI] 37.0-37.9, adult; Z79.01 Long term (current) use of anticoagulants; Z79.899 Other long term (current) drug therapy ==

== ENCOUNTER → 2021-06-28 | Outpatient (CLI) | payer OTHER | LOC: M.WC 09:45 | PROVIDERS: ATTEND Emergency Medicine Undersea and Hyperbaric Medicine | DX: L97.321 Non-pressure chronic ulcer of left ankle limited to breakdown of skin (principal); L97.811 Non-pressure chronic ulcer of other part of right lower leg limited to breakdown of skin; L97.212 Non-pressure chronic ulcer of right calf with fat layer exposed; L97.821 Non-pressure chronic ulcer of other part of left lower leg limited to breakdown of skin; D45 Polycythemia vera; I10 Essential (primary) hypertension; I48.91 Unspecified atrial fibrillation; M10.9 Gout, unspecified; M19.90 Unspecified osteoarthritis, unspecified site; E66.9 Obesity, unspecified; Z68.37 Body mass index [BMI] 37.0-37.9, adult ==

== ENCOUNTER → 2021-07-02 | Outpatient (CLI) | payer OTHER ==
[~2021-07-02] MED LIST changes: +PERCOCET 7.5-31 EACH PO
== END ==
LOC: M.WC 08:32
PROVIDERS: ATTEND Emergency Medicine Undersea and Hyperbaric Medicine
DX: L97.322 Non-pressure chronic ulcer of left ankle with fat layer exposed (principal); L97.811 Non-pressure chronic ulcer of other part of right lower leg limited to breakdown of skin; L97.212 Non-pressure chronic ulcer of right calf with fat layer exposed; L97.822 Non-pressure chronic ulcer of other part of left lower leg with fat layer exposed; L97.411 Non-pressure chronic ulcer of right heel and midfoot limited to breakdown of skin; E66.9 Obesity, unspecified; D75.1 Secondary polycythemia; I10 Essential (primary) hypertension; I48.91 Unspecified atrial fibrillation; M10.9 Gout, unspecified; M19.90 Unspecified osteoarthritis, unspecified site; Z68.37 Body mass index [BMI] 37.0-37.9, adult; Z79.01 Long term (current) use of anticoagulants

== ENCOUNTER → 2021-07-05 | Outpatient (CLI) | payer OTHER | LOC: M.WC 08:25 | PROVIDERS: ATTEND Emergency Medicine Undersea and Hyperbaric Medicine | DX: L97.212 Non-pressure chronic ulcer of right calf with fat layer exposed (principal); L97.322 Non-pressure chronic ulcer of left ankle with fat layer exposed; L97.822 Non-pressure chronic ulcer of other part of left lower leg with fat layer exposed; L97.511 Non-pressure chronic ulcer of other part of right foot limited to breakdown of skin; L97.411 Non-pressure chronic ulcer of right heel and midfoot limited to breakdown of skin; L97.811 Non-pressure chronic ulcer of other part of right lower leg limited to breakdown of skin; I87.8 Other specified disorders of veins; D45 Polycythemia vera; I10 Essential (primary) hypertension; I48.91 Unspecified atrial fibrillation; M10.9 Gout, unspecified; M19.90 Unspecified osteoarthritis, unspecified site; E66.9 Obesity, unspecified; Z68.37 Body mass index [BMI] 37.0-37.9, adult ==

== ENCOUNTER → 2021-07-09 | Outpatient (CLI) | payer OTHER | LOC: M.WC 08:08 | PROVIDERS: ATTEND Emergency Medicine Undersea and Hyperbaric Medicine | DX: L97.322 Non-pressure chronic ulcer of left ankle with fat layer exposed (principal); L97.811 Non-pressure chronic ulcer of other part of right lower leg limited to breakdown of skin; L97.822 Non-pressure chronic ulcer of other part of left lower leg with fat layer exposed; L97.212 Non-pressure chronic ulcer of right calf with fat layer exposed; L97.411 Non-pressure chronic ulcer of right heel and midfoot limited to breakdown of skin; E66.9 Obesity, unspecified; D45 Polycythemia vera; I10 Essential (primary) hypertension; I48.91 Unspecified atrial fibrillation; M10.9 Gout, unspecified; M19.90 Unspecified osteoarthritis, unspecified site; Z68.37 Body mass index [BMI] 37.0-37.9, adult; Z79.01 Long term (current) use of anticoagulants ==

== ENCOUNTER → 2021-07-16 | Outpatient (CLI) | payer OTHER | LOC: M.WC 08:46 | PROVIDERS: ATTEND Emergency Medicine Undersea and Hyperbaric Medicine | DX: L97.322 Non-pressure chronic ulcer of left ankle with fat layer exposed (principal); L97.811 Non-pressure chronic ulcer of other part of right lower leg limited to breakdown of skin; L97.822 Non-pressure chronic ulcer of other part of left lower leg with fat layer exposed; L97.212 Non-pressure chronic ulcer of right calf with fat layer exposed; L97.411 Non-pressure chronic ulcer of right heel and midfoot limited to breakdown of skin; E66.9 Obesity, unspecified; D45 Polycythemia vera; I10 Essential (primary) hypertension; I48.91 Unspecified atrial fibrillation; M10.9 Gout, unspecified; M19.90 Unspecified osteoarthritis, unspecified site; Z68.37 Body mass index [BMI] 37.0-37.9, adult; Z79.01 Long term (current) use of anticoagulants ==

== ENCOUNTER → 2021-07-19 | Outpatient (CLI) | payer OTHER | LOC: M.WC 08:40 | PROVIDERS: ATTEND Emergency Medicine Undersea and Hyperbaric Medicine | DX: L97.322 Non-pressure chronic ulcer of left ankle with fat layer exposed (principal); L97.811 Non-pressure chronic ulcer of other part of right lower leg limited to breakdown of skin; L97.822 Non-pressure chronic ulcer of other part of left lower leg with fat layer exposed; L97.212 Non-pressure chronic ulcer of right calf with fat layer exposed; L97.512 Non-pressure chronic ulcer of other part of right foot with fat layer exposed; E66.9 Obesity, unspecified; D45 Polycythemia vera; I10 Essential (primary) hypertension; I48.91 Unspecified atrial fibrillation; M10.9 Gout, unspecified; M19.90 Unspecified osteoarthritis, unspecified site; Z68.37 Body mass index [BMI] 37.0-37.9, adult; Z79.01 Long term (current) use of anticoagulants ==

== ENCOUNTER → 2021-07-23 | Outpatient (CLI) | payer OTHER | LOC: M.WC 08:59 | PROVIDERS: ATTEND Emergency Medicine Undersea and Hyperbaric Medicine | DX: L97.322 Non-pressure chronic ulcer of left ankle with fat layer exposed (principal); L97.212 Non-pressure chronic ulcer of right calf with fat layer exposed; L97.822 Non-pressure chronic ulcer of other part of left lower leg with fat layer exposed; L97.512 Non-pressure chronic ulcer of other part of right foot with fat layer exposed; L97.411 Non-pressure chronic ulcer of right heel and midfoot limited to breakdown of skin; D45 Polycythemia vera; I10 Essential (primary) hypertension; I48.91 Unspecified atrial fibrillation; M10.9 Gout, unspecified; M19.90 Unspecified osteoarthritis, unspecified site; E66.9 Obesity, unspecified; Z68.37 Body mass index [BMI] 37.0-37.9, adult; Z79.01 Long term (current) use of anticoagulants ==

== ENCOUNTER → 2021-07-26 | Outpatient (CLI) | payer OTHER | LOC: M.WC 08:28 | PROVIDERS: ATTEND Emergency Medicine Undersea and Hyperbaric Medicine | DX: L97.512 Non-pressure chronic ulcer of other part of right foot with fat layer exposed (principal); L97.822 Non-pressure chronic ulcer of other part of left lower leg with fat layer exposed; L97.322 Non-pressure chronic ulcer of left ankle with fat layer exposed; L97.212 Non-pressure chronic ulcer of right calf with fat layer exposed; L97.811 Non-pressure chronic ulcer of other part of right lower leg limited to breakdown of skin; L97.411 Non-pressure chronic ulcer of right heel and midfoot limited to breakdown of skin; D45 Polycythemia vera; I87.8 Other specified disorders of veins; I10 Essential (primary) hypertension; I48.91 Unspecified atrial fibrillation; M10.9 Gout, unspecified; M19.90 Unspecified osteoarthritis, unspecified site; E66.9 Obesity, unspecified; Z68.37 Body mass index [BMI] 37.0-37.9, adult ==

== ENCOUNTER → 2021-07-30 | Outpatient (CLI) | payer OTHER | LOC: M.WC 08:33 | PROVIDERS: ATTEND Emergency Medicine Undersea and Hyperbaric Medicine | DX: L97.322 Non-pressure chronic ulcer of left ankle with fat layer exposed (principal); L97.212 Non-pressure chronic ulcer of right calf with fat layer exposed; L97.822 Non-pressure chronic ulcer of other part of left lower leg with fat layer exposed; L97.512 Non-pressure chronic ulcer of other part of right foot with fat layer exposed; L97.411 Non-pressure chronic ulcer of right heel and midfoot limited to breakdown of skin; L97.811 Non-pressure chronic ulcer of other part of right lower leg limited to breakdown of skin; I87.8 Other specified disorders of veins; D45 Polycythemia vera; I10 Essential (primary) hypertension; I48.91 Unspecified atrial fibrillation; M10.9 Gout, unspecified; M19.90 Unspecified osteoarthritis, unspecified site; E66.9 Obesity, unspecified; Z68.37 Body mass index [BMI] 37.0-37.9, adult; Z79.01 Long term (current) use of anticoagulants; Z79.899 Other long term (current) drug therapy ==

== ENCOUNTER → 2021-08-02 | Outpatient (CLI) | payer OTHER | LOC: M.WC 08:14 | PROVIDERS: ATTEND Emergency Medicine Undersea and Hyperbaric Medicine | DX: L97.322 Non-pressure chronic ulcer of left ankle with fat layer exposed (principal); L97.212 Non-pressure chronic ulcer of right calf with fat layer exposed; L97.822 Non-pressure chronic ulcer of other part of left lower leg with fat layer exposed; L97.512 Non-pressure chronic ulcer of other part of right foot with fat layer exposed; L97.811 Non-pressure chronic ulcer of other part of right lower leg limited to breakdown of skin; L97.411 Non-pressure chronic ulcer of right heel and midfoot limited to breakdown of skin; D45 Polycythemia vera; I10 Essential (primary) hypertension; I48.91 Unspecified atrial fibrillation; M10.9 Gout, unspecified; M19.90 Unspecified osteoarthritis, unspecified site; E66.9 Obesity, unspecified; Z68.37 Body mass index [BMI] 37.0-37.9, adult ==

== ENCOUNTER → 2021-08-06 | Outpatient (CLI) | payer OTHER | LOC: M.WC 08:31 | PROVIDERS: ATTEND Emergency Medicine Undersea and Hyperbaric Medicine | DX: L97.322 Non-pressure chronic ulcer of left ankle with fat layer exposed (principal); L97.212 Non-pressure chronic ulcer of right calf with fat layer exposed; L97.822 Non-pressure chronic ulcer of other part of left lower leg with fat layer exposed; L97.512 Non-pressure chronic ulcer of other part of right foot with fat layer exposed; L97.811 Non-pressure chronic ulcer of other part of right lower leg limited to breakdown of skin; L97.411 Non-pressure chronic ulcer of right heel and midfoot limited to breakdown of skin; D45 Polycythemia vera; I10 Essential (primary) hypertension; I48.91 Unspecified atrial fibrillation; M10.9 Gout, unspecified; M19.90 Unspecified osteoarthritis, unspecified site; E66.9 Obesity, unspecified; Z68.37 Body mass index [BMI] 37.0-37.9, adult; Z79.01 Long term (current) use of anticoagulants; Z79.899 Other long term (current) drug therapy ==

== ENCOUNTER → 2021-08-13 | Outpatient (CLI) | payer OTHER | LOC: M.WC 08:13 | PROVIDERS: ATTEND Emergency Medicine Undersea and Hyperbaric Medicine | DX: L97.322 Non-pressure chronic ulcer of left ankle with fat layer exposed (principal); L97.212 Non-pressure chronic ulcer of right calf with fat layer exposed; L97.822 Non-pressure chronic ulcer of other part of left lower leg with fat layer exposed; L97.512 Non-pressure chronic ulcer of other part of right foot with fat layer exposed; L97.811 Non-pressure chronic ulcer of other part of right lower leg limited to breakdown of skin; L97.411 Non-pressure chronic ulcer of right heel and midfoot limited to breakdown of skin; D45 Polycythemia vera; I87.8 Other specified disorders of veins; I10 Essential (primary) hypertension; I48.91 Unspecified atrial fibrillation; E66.9 Obesity, unspecified; M10.9 Gout, unspecified; M19.90 Unspecified osteoarthritis, unspecified site; Z68.37 Body mass index [BMI] 37.0-37.9, adult; Z79.01 Long term (current) use of anticoagulants ==

== ENCOUNTER → 2021-08-20 | Outpatient (CLI) | payer BC | LOC: M.WC 08:59 | PROVIDERS: ATTEND Surgery | DX: L97.322 Non-pressure chronic ulcer of left ankle with fat layer exposed (principal); L97.212 Non-pressure chronic ulcer of right calf with fat layer exposed; L97.822 Non-pressure chronic ulcer of other part of left lower leg with fat layer exposed; L97.811 Non-pressure chronic ulcer of other part of right lower leg limited to breakdown of skin; L97.411 Non-pressure chronic ulcer of right heel and midfoot limited to breakdown of skin; D45 Polycythemia vera; I87.8 Other specified disorders of veins; I10 Essential (primary) hypertension; I48.91 Unspecified atrial fibrillation; E66.9 Obesity, unspecified; M10.9 Gout, unspecified; M19.90 Unspecified osteoarthritis, unspecified site; Z68.37 Body mass index [BMI] 37.0-37.9, adult; Z79.01 Long term (current) use of anticoagulants ==

== ENCOUNTER → 2021-09-03 | Outpatient (CLI) | payer BC | LOC: M.WC 08:46 | PROVIDERS: ATTEND Surgery | DX: L97.322 Non-pressure chronic ulcer of left ankle with fat layer exposed (principal); L97.822 Non-pressure chronic ulcer of other part of left lower leg with fat layer exposed; L97.812 Non-pressure chronic ulcer of other part of right lower leg with fat layer exposed; L97.411 Non-pressure chronic ulcer of right heel and midfoot limited to breakdown of skin; S90.425A Blister (nonthermal), left lesser toe(s), initial encounter; D45 Polycythemia vera; I87.8 Other specified disorders of veins; I10 Essential (primary) hypertension; I48.91 Unspecified atrial fibrillation; E66.9 Obesity, unspecified; M10.9 Gout, unspecified; M19.90 Unspecified osteoarthritis, unspecified site; Z68.37 Body mass index [BMI] 37.0-37.9, adult; Z79.01 Long term (current) use of anticoagulants; X58.XXXA Exposure to other specified factors, initial encounter; Y93.89 Activity, other specified; Y92.89 Other specified places as the place of occurrence of the external cause; Y99.8 Other external cause status ==

== ENCOUNTER → 2021-09-03 | Outpatient (CLI) | payer BC ==
[2021-09-03 10:56] LABS: HEMATOCRIT 49.1 % (42.0-52.0); HEMOGLOBIN 15.2 gm/dL (14.0-18.0); MCH 24.6 pg (26.0-34.0); MCHC 30.9 g/dL (28.0-37.0); MCV 79.8 fL (80.0-100.0); MPV 8.5 fl. (7.2-11.1); NUCLEATED RBCS 0 /100WBC; PLATELET COUNT* 498 thou/uL (150-400); RBC 6.16 mil/uL (4.50-6.00); RDW-CV 25.6 % (10.5-14.5); WBC 21.9 thou/uL (4.0-11.0)
[2021-09-03 11:04] LABS: ALBUMIN 3.6 g/dL (3.4-5.0); CALCIUM 9.1 mg/dL (8.5-10.1); CREATININE 2.2 mg/dL (0.6-1.3); POTASSIUM 4.1 mmol/L (3.5-5.1); TOTAL BILIRUBIN 0.9 mg/dL (<0.1-1.0); TOTAL PROTEIN 8.2 g/dL (6.4-8.2)
[2021-09-03 11:31] LABS: ABSOLUTE EOSINOPHILS 0.7 thou/uL (0.0-0.7); ABSOLUTE LYMPHOCYTES 1.5 thou/uL (0.8-5.3); ABSOLUTE MONOCYTES 0.4 thou/uL (0.0-1.2); ABSOLUTE NEUTROPHILS 19.3 thou/uL (1.6-8.1)
[2021-09-03 11:32] LABS: ANISOCYTOSIS 3+; HYPOCHROMASIA 1+; PLATELET ESTIMATE INCREASED
== END ==
LOC: M.LAB 10:27
PROVIDERS: ATTEND Internal Medicine Hematology & Oncology
DX: I48.0 Paroxysmal atrial fibrillation (principal)

== ENCOUNTER → 2021-09-10 | Outpatient (CLI) | payer BC | LOC: M.WC 08:17 | PROVIDERS: ATTEND Surgery | DX: L97.322 Non-pressure chronic ulcer of left ankle with fat layer exposed (principal); L97.822 Non-pressure chronic ulcer of other part of left lower leg with fat layer exposed; L97.812 Non-pressure chronic ulcer of other part of right lower leg with fat layer exposed; L97.411 Non-pressure chronic ulcer of right heel and midfoot limited to breakdown of skin; S90.425D Blister (nonthermal), left lesser toe(s), subsequent encounter; D45 Polycythemia vera; I87.8 Other specified disorders of veins; I10 Essential (primary) hypertension; I48.91 Unspecified atrial fibrillation; E66.9 Obesity, unspecified; M10.9 Gout, unspecified; M19.90 Unspecified osteoarthritis, unspecified site; Z68.37 Body mass index [BMI] 37.0-37.9, adult; Z79.01 Long term (current) use of anticoagulants; X58.XXXD Exposure to other specified factors, subsequent encounter ==

== ENCOUNTER → 2021-09-17 | Outpatient (CLI) | payer BC | LOC: M.WC 08:13 | PROVIDERS: ATTEND Surgery | DX: L97.322 Non-pressure chronic ulcer of left ankle with fat layer exposed (principal); L97.822 Non-pressure chronic ulcer of other part of left lower leg with fat layer exposed; L97.812 Non-pressure chronic ulcer of other part of right lower leg with fat layer exposed; L97.411 Non-pressure chronic ulcer of right heel and midfoot limited to breakdown of skin; S90.425D Blister (nonthermal), left lesser toe(s), subsequent encounter; D45 Polycythemia vera; I87.8 Other specified disorders of veins; I10 Essential (primary) hypertension; I48.91 Unspecified atrial fibrillation; E66.9 Obesity, unspecified; M10.9 Gout, unspecified; M19.90 Unspecified osteoarthritis, unspecified site; Z68.37 Body mass index [BMI] 37.0-37.9, adult; Z79.01 Long term (current) use of anticoagulants; X58.XXXD Exposure to other specified factors, subsequent encounter ==

== ENCOUNTER 2021-09-20 14:52 | Inpatient (IN) | payer BC ==
[~2021-09-20] VITALS: Ht 182.9 cm; Wt 108.0 kg
[2021-09-20 14:55] VITALS: BP 138/59
[2021-09-20 16:27] LABS: WBC 21.1 thou/uL (4.0-11.0)
[2021-09-20 16:29] LABS: HEMATOCRIT 50.4 % (42.0-52.0); HEMOGLOBIN 15.2 gm/dL (14.0-18.0); MCH 22.8 pg (26.0-34.0); MCHC 30.1 g/dL (28.0-37.0); MCV 75.7 fL (80.0-100.0); MPV 8.6 fl. (7.2-11.1); NUCLEATED RBCS 0 /100WBC; PLATELET COUNT* 550 thou/uL (150-400); RBC 6.66 mil/uL (4.50-6.00); RDW-CV 22.8 % (10.5-14.5)
[2021-09-20 16:33] LABS: CALCIUM 8.9 mg/dL (8.5-10.1); CREATININE 1.7 mg/dL (0.6-1.3); POTASSIUM 4.1 mmol/L (3.5-5.1)
[2021-09-20 16:38] LABS: ALBUMIN 3.4 g/dL (3.4-5.0)
[2021-09-20 16:43] LABS: ABSOLUTE BASOPHILS 0.8 thou/uL (0.0-0.2); ABSOLUTE LYMPHOCYTES 1.5 thou/uL (0.8-5.3); ABSOLUTE MONOCYTES 0.2 thou/uL (0.0-1.2); ABSOLUTE NEUTROPHILS 18.6 thou/uL (1.6-8.1); ANISOCYTOSIS 1+; ATYPICAL LYMPHS 2 %; PLATELET ESTIMATE INCREASED
[2021-09-20 16:44] LABS: MICROCYTES 1+
[2021-09-20 22:40] VITALS: BP 126/60
[2021-09-21 03:20] VITALS: BP 117/63
[2021-09-21 07:45] VITALS: BP 127/58
[2021-09-21 10:28] LABS: ABSOLUTE BASOPHILS 0.2 thou/uL (0.0-0.2); ABSOLUTE EOSINOPHILS 0.6 thou/uL (0.0-0.7); ABSOLUTE NEUTROPHILS 20.6 thou/uL (1.6-8.1); BASOPHILS 1.1 %; EOSINOPHILS 2.5 %; HEMOGLOBIN 15.2 gm/dL (14.0-18.0); LYMPHOCYTES 4.4 %; MCH 22.4 pg (26.0-34.0); MCHC 30.4 g/dL (28.0-37.0); MCV 73.7 fL (80.0-100.0); MONOCYTES 4.3 %; MPV 8.4 fl. (7.2-11.1); NUCLEATED RBCS 0 /100WBC; PLATELET COUNT* 560 thou/uL (150-400); POLYS 87.7 %; RBC 6.79 mil/uL (4.50-6.00); RDW-CV 22.7 % (10.5-14.5); WBC 23.4 thou/uL (4.0-11.0)
[2021-09-21 10:31] LABS: ALBUMIN 3.5 g/dL (3.4-5.0); CALCIUM 8.9 mg/dL (8.5-10.1); CREATININE 1.4 mg/dL (0.6-1.3); MAGNESIUM 2.1 mg/dL (1.8-2.4); POTASSIUM 4.4 mmol/L (3.5-5.1); TOTAL PROTEIN 8.1 g/dL (6.4-8.2)
[2021-09-21 11:35] LABS: ESR (SEDRATE) 5 mm/hr (0-20)
[2021-09-21 12:00] VITALS: BP 110/55
[2021-09-21 14:40] VITALS: BP 110/55
[2021-09-21 20:30] VITALS: BP 130/64
[2021-09-22 01:53] VITALS: BP 126/60
[2021-09-22 04:30] LABS: HEMATOCRIT 48.3 % (42.0-52.0); HEMOGLOBIN 14.7 gm/dL (14.0-18.0); MCH 22.7 pg (26.0-34.0); MCHC 30.5 g/dL (28.0-37.0); MCV 74.5 fL (80.0-100.0); MPV 8.7 fl. (7.2-11.1); RBC 6.49 mil/uL (4.50-6.00); RDW-CV 23.1 % (10.5-14.5); WBC 19.7 thou/uL (4.0-11.0)
[2021-09-22 04:49] LABS: CALCIUM 8.7 mg/dL (8.5-10.1); CREATININE 1.3 mg/dL (0.6-1.3)
[2021-09-22 05:08] LABS: POTASSIUM 3.4 mmol/L (3.5-5.1)
[2021-09-22 05:27] VITALS: BP 112/53
[2021-09-22 09:26] VITALS: BP 124/66
[2021-09-22 13:59] VITALS: BP 105/48
[2021-09-22 17:44] VITALS: BP 117/56
[2021-09-22 20:30] VITALS: BP 124/71
[2021-09-23] VITALS (7 sets, daily range): BP systolic 102–129; BP diastolic 45–60
[2021-09-23 04:45] LABS: HEMATOCRIT 45.3 % (42.0-52.0); HEMOGLOBIN 13.7 gm/dL (14.0-18.0); MCH 22.5 pg (26.0-34.0); MCHC 30.3 g/dL (28.0-37.0); MCV 74.3 fL (80.0-100.0); MPV 8.7 fl. (7.2-11.1); RBC 6.1 mil/uL (4.50-6.00); RDW-CV 22.2 % (10.5-14.5); WBC 19.8 thou/uL (4.0-11.0)
[2021-09-23 05:02] LABS: CALCIUM 8.3 mg/dL (8.5-10.1); CREATININE 1.5 mg/dL (0.6-1.3); POTASSIUM 3.4 mmol/L (3.5-5.1)
[2021-09-23 05:33] LABS: INR 1.3; PROTIME 13.3 Seconds (9.20-11.50)
--- NOTE | 2021-09-23 11:12 | EKG ---
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: : 1955 Requested By: Rachel Guerrero Order Number: [id number] Damaso MD: Allen Dukes Measurements Intervals [place] Rate: 69 P: [place]: QRS: -10 QRSD: 118 T: 47 QT: 429 QTc: 460 Interpretive Statements Atrial fibrillation Nonspecific intraventricular conduction delay Compared to ECG 06/19/2018 17:59:17 Nonspecific IVCD is noted Electronically Signed On 09-23-2021 11:12:30 OFFICE AUDITOR by Allen Dukes [email or web address] <ELECTRONICALLY SIGNED> By: Allen Dukes MD, [facility] 09/23/21 1112 1222 122 Allen Dukes MD, [facility] /EPI
== END 2021-09-23 21:10 | disposition short-term general hospital (02) | DRG 299 ==
LOC: M.ERS 14:52 → M.TBA-ER 18:37 → M.2W 18:37
PROVIDERS: Internal Medicine; Physician Assistant; Radiology Diagnostic Radiology; ADMIT Internal Medicine; ATTEND Internal Medicine
PROC: B41DYZZ Fluoroscopy of Aorta and Bilateral Lower Extremity Arteries using Other Contrast (ICD-10-PCS; principal; 2021-09-23)
DX: I70.262 Atherosclerosis of native arteries of extremities with gangrene, left leg (principal); R65.11 Systemic inflammatory response syndrome (SIRS) of non-infectious origin with acute organ dysfunction; N17.0 Acute kidney failure with tubular necrosis; L03.116 Cellulitis of left lower limb; L97.929 Non-pressure chronic ulcer of unspecified part of left lower leg with unspecified severity; M87.078 Idiopathic aseptic necrosis of left toe(s); L97.919 Non-pressure chronic ulcer of unspecified part of right lower leg with unspecified severity; Z20.822 Contact with and (suspected) exposure to COVID-19; M10.9 Gout, unspecified; I10 Essential (primary) hypertension; I48.91 Unspecified atrial fibrillation; D72.829 Elevated white blood cell count, unspecified; M54.30 Sciatica, unspecified side; D45 Polycythemia vera; Z79.899 Other long term (current) drug therapy